=== PATIENT | male | born 1975 | race Asian ===

== ENCOUNTER 2017-02-15 22:42 | Emergency (ER) | payer SELFPAY ==
[~2017-02-15] VITALS: Ht 165.1 cm; Wt 72.5 kg
[~2017-02-15 22:42] MED LIST: NOCURR
[2017-02-15] MEDS ORDERED: KETOROLAC TROMETHAMINE 60 MG/2 ML VIAL IM ONE (23:45)
[2017-02-16] MEDS ORDERED: DIAZEPAM 5 MG/ML 2 ML SYRINGE IM ONE
[2017-02-16] MEDS ORDERED: PredniSONE 20 MG TABLET PO ONE
[2017-02-16 01:19] VITALS: BP 135/79
== END 2017-02-16 01:22 | disposition home or self-care (01) ==
LOC: EMS 22:43
DX: M62.838 Other muscle spasm (principal); M43.6 Torticollis; I10 Essential (primary) hypertension
CPT/HCPCS: 96372; 99284; J1885 ×2; J7512

== ENCOUNTER 2020-02-17 01:40 | Emergency (ER) | payer MEDICAID ==
[~2020-02-17] VITALS: Ht 162.6 cm; Wt 73.2 kg
[2020-02-17] MEDS ORDERED: LABE100T8 PO (01:43)
[2020-02-17] MEDS ORDERED: HYDR-1475 PO (01:44)
[2020-02-17] MEDS ORDERED: ATOR20TA86 PO (01:44)
[2020-02-17 02:14] LABS: BASOPHILS % (AUTO) 0.5 % (0.0-2.0); EOSINOPHILS % (AUTO) 1.4 % (1.0-6.0); HEMATOCRIT 40.5 % (41-53); HEMOGLOBIN 12.6 g/dL (13.5-17.5); LYMPHOCYTES # (AUTO) 3.2 K/uL (1.0-4.8); LYMPHOCYTES % (AUTO) 28.1 % (22.0-44.0); MEAN CORPUSCULAR HEMOGLOBIN 20.1 pg (26.0-34.0); MEAN CORPUSCULAR VOLUME 65 fL (80-100); MONOCYTES # (AUTO) 0.9 K/uL (0.1-1.0); PLATELET COUNT (AUTO) 200 K/uL (150-450); RED BLOOD CELL COUNT(AUTO) 6.25 MIL/uL (4.50-5.90); RED CELL DISTRIBUTION WIDTH 16.7 % (11.5-14.5)
[2020-02-17 02:25] LABS: ANION GAP 10 mmol/L (8-16); CALCIUM, TOTAL 8.6 mg/dL (8.8-10.5); CARBON DIOXIDE 29 mmol/L (22-29); CHLORIDE 102 mmol/L (98-107); CREATININE 1.84 mg/dL (0.60-1.30); GLOMERULAR FILTR. RATE CALC 40 mL/min (>60); GLUCOSE,RANDOM 159 mg/dL (70-110); POTASSIUM 3.5 mmol/L (3.5-5.1); SODIUM SERUM 141 mmol/L (136-145); UREA NITROGEN, BLOOD 20 mg/dL (7-18)
[2020-02-17 02:50] LABS: ALANINE AMINOTRANSFERASE 50 U/L (12-78); ALBUMIN 3.8 g/dL (3.4-5.0); ALKALINE PHOSPHATASE 66 U/L (46-116); ASPARTATE AMINOTRANSFERASE 23 U/L (15-37); BILIRUBIN,TOTAL 0.2 mg/dL (0.1-1.0); CREATINE KINASE, TOTAL ONLY 139 U/L (39-308); TOTAL PROTEIN, SERUM 7.2 g/dL (6.4-8.2)
[2020-02-17 03:55] VITALS: BP 114/60
== END 2020-02-17 03:58 | disposition home or self-care (01) ==
LOC: EMS 01:40
DX: F15.10 Other stimulant abuse, uncomplicated (principal); R42 Dizziness and giddiness; E78.00 Pure hypercholesterolemia, unspecified
CPT/HCPCS: 36415; 80053; 82550; 83735; 84484; 85025; 93005; 99284; G0480